=== PATIENT | male | born 1965 | race Hispanic/Latino ===

== ENCOUNTER 2022-06-05 14:32 | Inpatient (IN) | payer SELFPAY ==
[~2022-06-05] VITALS: Ht 167.6 cm; Wt 74.4 kg
[~2022-06-05 14:32] MED LIST: LIDOCAINE HCL 2% LOCAL INJ 5 ML SDV VIAL INJ ONE; METOCLOPRAMIDE HCL 10 MG/2ML VIAL ONE; ONDANSETRON HCL INJ 2MG/ML 2ML 2 MG/ML VIAL ONE; POVIDONE IODINE 0.05% 0.05 % ML PO ONE; PROPOFOL IV EMULSION 10 MG/ML 20 ML VIAL ONE; SUCCINYLCHOLINE CHLORIDE 20 MG/ML 10ML VIAL ONE
[2022-06-05] MEDS ORDERED: ACETAMINOPHEN 325 MG TAB ONE (15:11)
[2022-06-05] MEDS ORDERED: ACETAMINOPHEN 325 MG TAB PO ONE (15:15)
[2022-06-05] MEDS ORDERED: SODIUM CHLORIDE 0.9% 1000ML 1,000 ML IV STA (15:17)
[2022-06-05 15:30] LABS: BASOPHILS % 0.2 % (0.0-1.0); EOSINOPHILS % 0.2 % (0.0-6.0); HEMATOCRIT 41.1 % (38.2-49.6); LYMPHOCYTES # (AUTO) 1.5 (1.0-3.2); LYMPHOCYTES % 8.9 % (18.0-39.1); MEAN CORPUSCULAR HEMOGLOBIN 32.4 pg (28-32); MEAN CORPUSCULAR HGB CONC 34.1 g/dL (31-35); MEAN CORPUSCULAR VOLUME 95.1 fL (81-99); MONOCYTES # (AUTO) 1.6 (0.2-0.8); MONOCYTES % 9.2 % (4.4-11.3); NEUTROPHILS # (AUTO) 13.7 (2.1-6.9); PLATELET COUNT 305 x10e3/uL (140-360); RED BLOOD COUNT 4.32 x10e6/uL (4.3-5.7); RED CELL DISTRIBUTION WIDTH 13.9 % (11.7-14.4)
[2022-06-05] MEDS ORDERED: Vancomycin IV 1 GM in SODIUM CHLORIDE 0.9% 250ML 250 ML IV SCH (15:30)
[2022-06-05 15:34] LABS: INR 1.04; PARTIAL THROMBOPLASTIN TIME 31.7 seconds (23.8-35.5); PROTHROMBIN TIME 14.1 seconds (11.9-14.5)
[2022-06-05 15:40] LABS: ALBUMIN 3.5 g/dL (3.5-5.0); ALBUMIN/GLOBULIN RATIO 0.8 (0.8-2.0); ANION GAP 15.8 mmol/L (8-16); CALCIUM 9.5 mg/dL (8.4-10.2); CREATININE, SERUM 0.79 mg/dL (0.72-1.25); POTASSIUM 3.8 mmol/L (3.5-5.1)
[2022-06-05 16:11] LABS: CLARITY,URINE SL CLOUDY (CLEAR); COLOR,URINE YELLOW (YELLOW); KETONES,URINE NEGATIVE (NEGATIVE); LEUKOCYTE ESTERASE ,URINE NEGATIVE (NEGATIVE); NITRITE,URINE NEGATIVE (NEGATIVE); PROTEIN,URINE DIPSTICK 2+ (NEGATIVE); URINE UROBILINOGEN 1 mg/dL (0.2 - 1)
[2022-06-05 16:22] LABS: BACTERIA,URINE RARE /HPF; EPITHELIAL CELLS,URINE RARE /LPF; MUCUS,URINE FEW (RARE); RBC,URINE 0-5 /HPF (0-5)
[2022-06-05] MEDS ORDERED: ONDANSETRON HCL INJ 2MG/ML 2ML 2 MG/ML VIAL IV PRN ×2 (17:30→20:15)
[2022-06-05] MEDS ORDERED: HYDROCODONE/APAP 5MG-325MG TAB PO PRN ×2 (17:30→20:15)
[2022-06-05] MEDS: SODIUM CHLORIDE 0.9% 1000ML 1,000 ML IV SCH (19:40)
[2022-06-05] MEDS ORDERED: SIMETHICONE 80 MG CHEW PO PRN (20:15)
[2022-06-05] MEDS ORDERED: DOCUSATE SODIUM 100 MG CAP PO PRN (20:15)
[2022-06-05] MEDS ORDERED: POTASSIUM CHLORIDE 20 MEQ TAB CR PO PRN (20:15)
[2022-06-05] MEDS ORDERED: MELATONIN 5 MG TABLET PO PRN (20:15)
[2022-06-05] MEDS ORDERED: HYDRALAZINE HCL 20 MG/ML VIAL IV PRN (20:15)
[2022-06-05] MEDS ORDERED: ACETAMINOPHEN 325 MG TAB PO PRN (20:15)
[2022-06-05] MEDS ORDERED: DEXTROSE 50% SYRINGE 50 ML IV PRN (20:15)
[2022-06-05] MEDS ORDERED: DIPHENHYDRAMINE HCL 25 MG CAP PO PRN (20:15)
[2022-06-05] MEDS ORDERED: LIDOCAINE 4% PATCH TP PRN (20:15)
[2022-06-05] MEDS ORDERED: ALBUTEROL/IPRATROPIUM 3 ML NEB NEB PRN (20:15)
[2022-06-05] MEDS ORDERED: BENZONATATE 100 MG CAP PO PRN (20:15)
[2022-06-05] MEDS ORDERED: ALBUTEROL SULF 0.083% NEB SOLN 3 ML NEB NEB PRN (20:45)
[2022-06-05 22:00] VITALS: BP 170/88
[2022-06-05 22:57] VITALS: BP 170/88
[2022-06-05 23:00] VITALS: BP 170/88
[2022-06-06] VITALS (8 sets, daily range): BP systolic 126–157; BP diastolic 78–86
[2022-06-06] MEDS: IPRATROPIUM BROMIDE 0.02% 2.5 ML NEB NEB SCH ×2 (01:00→07:00)
[2022-06-06] MEDS: SODIUM CHLORIDE 0.9% 1000ML 1,000 ML IV SCH (04:25)
[2022-06-06] MEDS: Vancomycin IV 1 GM in SODIUM CHLORIDE 0.9% 250ML 250 ML IV SCH ×2 (04:25→16:35)
[2022-06-06 05:21] LABS: BASOPHILS # (AUTO) 0.1 (0.0-0.1); BASOPHILS % 0.4 % (0.0-1.0); EOSINOPHILS # (AUTO) 0.1 (0.0-0.4); EOSINOPHILS % 0.9 % (0.0-6.0); HEMATOCRIT 36.7 % (38.2-49.6); HEMOGLOBIN 12.4 g/dL (14.0-18.0); LYMPHOCYTES # (AUTO) 1.3 (1.0-3.2); MEAN CORPUSCULAR HEMOGLOBIN 32.5 pg (28-32); MEAN CORPUSCULAR HGB CONC 33.8 g/dL (31-35); MEAN CORPUSCULAR VOLUME 96.1 fL (81-99); MONOCYTES % 7.1 % (4.4-11.3); NEUTROPHILS # (AUTO) 11.6 (2.1-6.9); NEUTROPHILS % 82.1 % (38.7-80.0); PLATELET COUNT 264 x10e3/uL (140-360); RED BLOOD COUNT 3.82 x10e6/uL (4.3-5.7); RED CELL DISTRIBUTION WIDTH 13.7 % (11.7-14.4)
[2022-06-06 05:45] LABS: ALBUMIN 2.9 g/dL (3.5-5.0); ALBUMIN/GLOBULIN RATIO 0.7 (0.8-2.0); ANION GAP 10.7 mmol/L (8-16); CALCIUM 8.6 mg/dL (8.4-10.2); CREATININE, SERUM 0.7 mg/dL (0.72-1.25); POTASSIUM 3.7 mmol/L (3.5-5.1)
[2022-06-06] MEDS: PANTOPRAZOLE SOD 40 MG TABEC PO SCH (08:32)
[2022-06-06] MEDS: KETOROLAC TROMETHAMINE 30 MG/ML VIAL IV SCH ×2 (13:45→20:00)
[2022-06-06] MEDS: ENOXAPARIN SOD INJ 40 MG/0.4 ML SYR SC SCH (16:35)
[2022-06-07] VITALS (8 sets, daily range): BP systolic 126–139; BP diastolic 74–91
[2022-06-07] MEDS: KETOROLAC TROMETHAMINE 30 MG/ML VIAL IV SCH ×2 (02:39→08:23)
[2022-06-07] MEDS: Vancomycin IV 1 GM in SODIUM CHLORIDE 0.9% 250ML 250 ML IV SCH ×2 (03:42→16:59)
[2022-06-07] MEDS: PANTOPRAZOLE SOD 40 MG TABEC PO SCH (08:22)
[2022-06-07] MEDS: TRIAMCINOLONE ACET 0.1% CREAM 15 GM TUBE TOP SCH (08:22)
[2022-06-07] MEDS: MUPIROCIN 2% OINT 22 GM TUBE TOP SCH (08:22)
[2022-06-07] MEDS ORDERED: ONDANSETRON HCL 4 MG ORAL DISINTEGRATING TAB PO PRN (13:15)
[2022-06-07] MEDS: ENOXAPARIN SOD INJ 40 MG/0.4 ML SYR SC SCH (16:05)
[2022-06-08] VITALS (8 sets, daily range): BP systolic 132–146; BP diastolic 81–92
[2022-06-08] MEDS: Vancomycin IV 1 GM in SODIUM CHLORIDE 0.9% 250ML 250 ML IV SCH (04:20)
[2022-06-08] MEDS: PANTOPRAZOLE SOD 40 MG TABEC PO SCH (08:08)
[2022-06-08] MEDS: TRIAMCINOLONE ACET 0.1% CREAM 15 GM TUBE TOP SCH (08:09)
[2022-06-08] MEDS: MUPIROCIN 2% OINT 22 GM TUBE TOP SCH (08:09)
[2022-06-08] MEDS ORDERED: BUPIVACAINE HCL 0.5% INJ 30 ML VIAL INJ ONE (15:54)
[2022-06-08] MEDS: ENOXAPARIN SOD INJ 40 MG/0.4 ML SYR SC SCH (17:24)
[2022-06-08] MEDS: Vancomycin IV 1.5 GM in SODIUM CHLORIDE 0.9% 250ML 300 ML IV SCH (17:25)
[2022-06-08] MEDS ORDERED: FENTANYL CITRATE/PF 100MCG/2 ML INJ ONE (17:48)
[2022-06-08] MEDS ORDERED: Morphine 10mg syringe 10 MG/ML INJ ONE (17:48)
[2022-06-09] MEDS: Vancomycin IV 1.5 GM in SODIUM CHLORIDE 0.9% 250ML 300 ML IV SCH ×2 (02:59→14:35)
[2022-06-09 03:20] VITALS: BP 143/91
[2022-06-09 05:17] LABS: BASOPHILS % 0.5 % (0.0-1.0); EOSINOPHILS # (AUTO) 0.3 (0.0-0.4); EOSINOPHILS % 3.3 % (0.0-6.0); LYMPHOCYTES # (AUTO) 1.5 (1.0-3.2); LYMPHOCYTES % 19.6 % (18.0-39.1); MEAN CORPUSCULAR HEMOGLOBIN 31.5 pg (28-32); MEAN CORPUSCULAR HGB CONC 32.4 g/dL (31-35); MEAN CORPUSCULAR VOLUME 97.4 fL (81-99); MONOCYTES # (AUTO) 0.8 (0.2-0.8); MONOCYTES % 9.7 % (4.4-11.3); NEUTROPHILS # (AUTO) 5.2 (2.1-6.9); NEUTROPHILS % 66.6 % (38.7-80.0); PLATELET COUNT 326 x10e3/uL (140-360); RED BLOOD COUNT 3.49 x10e6/uL (4.3-5.7); RED CELL DISTRIBUTION WIDTH 13.2 % (11.7-14.4)
[2022-06-09 05:42] LABS: ANION GAP 10.7 mmol/L (8-16); CALCIUM 8.5 mg/dL (8.4-10.2); CREATININE, SERUM 0.72 mg/dL (0.72-1.25); POTASSIUM 3.7 mmol/L (3.5-5.1)
[2022-06-09 08:00] VITALS: BP 142/82
[2022-06-09] MEDS: PANTOPRAZOLE SOD 40 MG TABEC PO SCH (08:22)
[2022-06-09] MEDS: MUPIROCIN 2% OINT 22 GM TUBE TOP SCH (08:26)
[2022-06-09] MEDS: TRIAMCINOLONE ACET 0.1% CREAM 15 GM TUBE TOP SCH (08:26)
[2022-06-09 09:00] VITALS: BP 142/82
[2022-06-09 12:00] VITALS: BP 155/94
[2022-06-09 16:00] VITALS: BP 153/86
[2022-06-09] MEDS: ENOXAPARIN SOD INJ 40 MG/0.4 ML SYR SC SCH (16:33)
[2022-06-09 20:00] VITALS: BP 133/81
[2022-06-10] VITALS: BP 128/62
[2022-06-10] MEDS: Vancomycin IV 1.5 GM in SODIUM CHLORIDE 0.9% 250ML 300 ML IV SCH (02:02)
[2022-06-10 04:00] VITALS: BP 139/89
[2022-06-10 07:50] VITALS: BP 141/85
[2022-06-10 08:56] VITALS: BP 141/85
[2022-06-10] MEDS: PANTOPRAZOLE SOD 40 MG TABEC PO SCH (09:25)
[2022-06-10] MEDS: MUPIROCIN 2% OINT 22 GM TUBE TOP SCH (09:26)
[2022-06-10] MEDS: TRIAMCINOLONE ACET 0.1% CREAM 15 GM TUBE TOP SCH (09:26)
[2022-06-10 11:27] VITALS: BP 121/78
[2022-06-10] MEDS ORDERED: DOXYCYCLINE HYCLATE TABLET 100 MG TAB PO ONE (14:15)
[2022-06-10] MEDS ORDERED: DOXYCYCLINE HY100 MG PO (14:30)
[2022-06-10 15:36] VITALS: BP 135/79
[2022-06-11 09:01] VITALS: BP 135/79
== END 2022-06-10 17:04 | disposition home or self-care (01) | DRG 872 ==
LOC: ER 14:52 → ERHOLD 17:33 → MED/SURG2 21:35
PROVIDERS: ADMIT Internal Medicine; ATTEND Internal Medicine
PROC: 0J9R0ZZ Drainage of Left Foot Subcutaneous Tissue and Fascia, Open Approach (ICD-10-PCS; principal; 2022-06-08 15:28)
DX: A41.9 Sepsis, unspecified organism (principal); L03.116 Cellulitis of left lower limb; L02.416 Cutaneous abscess of left lower limb; A49.01 Methicillin susceptible Staphylococcus aureus infection, unspecified site; Z20.822 Contact with and (suspected) exposure to COVID-19
CPT/HCPCS: 36415; 71045; 71250; 76882; 80048; 80053; 80202; 81001; 83605; 83735; 85025; 85610; 85730; 87040; 87071; 87075; 87086; 87186; 87205; 93005; 93971; 99252; 99284; J0330; J0692; J1650; J1885; J2001; J2270; J2405; J2543; J2765; J7030; J7050